=== PATIENT | female | born 1970 | race Caucasian/White ===

== ENCOUNTER 2022-11-17 16:10 | Emergency (ER) | payer OTHER ==
[2022-11-17 16:28] VITALS: BP 116/73; PULSE 95; RESP 19; TEMP 98.2; BMI 22.1
[2022-11-17] MEDS ORDERED: SODIUM CHLORIDE 0.9% 500 ML INFUS.BAG IV ONE (17:07)
[2022-11-17] MEDS ORDERED: MAG HYDROX/AL HYDROX/SIMETH 30 ML UNIT-DOSE CUP PO ONE (17:07)
[2022-11-17] MEDS ORDERED: ACETAMINOPHEN 1000 MG/100 ML BAG IVPB ONE (17:07)
[2022-11-17] MEDS ORDERED: FAMOTIDINE 20 MG/50 ML IVPB 20 MG/50 ML MG IVPB ONE (17:07)
[2022-11-17] MEDS ORDERED: ACETAMINOPHEN INJECTION 100 ML IVPB ONE (17:51)
[2022-11-17] MEDS ORDERED: MAG HYDROX/AL HYDROX/SIMETH 30 ML UNIT-DOSE CUP ONE (17:52)
[2022-11-17] MEDS ORDERED: FAMOTIDINE 20 MG/50 ML IVPB 0 MG/0 ML MG IVPB ONE (17:52)
[2022-11-17 17:57] LABS: BASO % 0.9 % (0-2.0); EOS % 2.3 % (0-4.5); HEMATOCRIT 40.4 % (32.4-45.2); HEMOGLOBIN 13.2 GM/dL (10.7-15.3); LYMPH % 39.7 % (8-40); MCH 30.1 pg (25.7-33.7); MCHC 32.7 g/dl (32.0-36.0); MEAN CELL VOLUME 91.8 fl (80-96); MEAN PLT VOLUME 8.8 fl (7.5-11.1); MONO % 10.2 % (3.8-10.2); NEUT % 46.9 % (42.8-82.8); PLATELET COUNT 274 10^3/uL (134-434); RDW 12.5 % (11.6-15.6); WHITE BLOOD COUNT 6.4 K/mm3 (4.0-10.0)
[2022-11-17 18:04] LABS: INR 1.07 (0.83-1.09); PROTHROMBIN TIME (PATIENT) 12.4 SEC (9.7-13.0)
[2022-11-17 18:07] LABS: ACTIVATED PTT 30.5 SECONDS (25.2-36.5)
[2022-11-17 18:13] LABS: POTASSIUM 4.2 mmol/L (3.5-5.1)
[2022-11-17 18:15] LABS: CALCIUM 9.4 mg/dL (8.5-10.1)
[2022-11-17 18:16] LABS: ALBUMIN 3.8 g/dl (3.4-5.0); BLOOD UREA NITROGEN 13.2 mg/dL (7-18); MAGNESIUM 2.4 mg/dL (1.8-2.4)
[2022-11-17 18:18] LABS: CREATININE 0.6 mg/dL (0.55-1.3)
[2022-11-17 18:20] LABS: BILIRUBIN,TOTAL 0.3 mg/dL (0.2-1); TOT PROT 7.4 g/dl (6.4-8.2)
== END 2022-11-17 20:32 | disposition home or self-care (01) ==
LOC: JER 16:10
PROC: 3E033GC Introduction of Other Therapeutic Substance into Peripheral Vein, Percutaneous Approach (ICD-10-PCS; principal; 2022-11-17)
PROC: 3E033NZ Introduction of Analgesics, Hypnotics, Sedatives into Peripheral Vein, Percutaneous Approach (ICD-10-PCS; 2022-11-17)
DX: R07.89 Other chest pain (principal); R10.30 Lower abdominal pain, unspecified; R50.9 Fever, unspecified
CPT/HCPCS: 36415; 71046-TC-FY; 76705-TC; 76775-TC; 80053; 83690; 83735; 84484; 85025; 85610; 85730; 93005; 93010; 99285-25

== ENCOUNTER 2023-05-16 01:54 | Emergency (ER) | payer OTHER ==
[2023-05-16 02:08] VITALS: BMI 22.9
[2023-05-16] MEDS ORDERED: IBUPROFEN 600 MG TABLET (FP) PO ONE ×2 (02:52→02:59)
[2023-05-16] MEDS ORDERED: DEXAMETHASONE 4 MG TABLET (FP) PO ONE (02:52)
[2023-05-16] MEDS ORDERED: valACYclovir HCL 500 MG TABLET (FP) PO ONE (02:52)
[2023-05-16] MEDS ORDERED: valACYclovir HCL 500 MG TABLET (FP) ONE (02:58)
[2023-05-16] MEDS ORDERED: DEXAMETHASONE 4 MG TABLET (FP) ONE ×2 (02:59→03:02)
[2023-05-16 03:14] VITALS: BP 107/58; PULSE 75; RESP 18; TEMP 97.8
== END 2023-05-16 03:35 | disposition home or self-care (01) ==
LOC: JER 01:54
DX: B02.9 Zoster without complications (principal); R21 Rash and other nonspecific skin eruption; L29.9 Pruritus, unspecified
CPT/HCPCS: 99283-25

== ENCOUNTER 2023-11-27 10:00 | Day surgery (SDC) | payer OTHER ==
[2023-11-20 15:43] VITALS: BMI 22.4
[2023-11-27 10:24] VITALS: TEMP 97.1
[2023-11-27 11:57] VITALS: RESP 18
[2023-11-27 13:10] VITALS: BP 115/74; PULSE 76
== END 2023-11-27 13:05 | disposition home or self-care (01) ==
LOC: FASU-ENDO 10:00
PROVIDERS: ATTEND Internal Medicine Gastroenterology
PROC: 0DB98ZX Excision of Duodenum, Via Natural or Artificial Opening Endoscopic, Diagnostic (ICD-10-PCS; 2023-11-27)
PROC: 0DB68ZX Excision of Stomach, Via Natural or Artificial Opening Endoscopic, Diagnostic (ICD-10-PCS; 2023-11-27)
PROC: 0DJD8ZZ Inspection of Lower Intestinal Tract, Via Natural or Artificial Opening Endoscopic (ICD-10-PCS; principal; 2023-11-27 11:19)
DX: Z12.11 Encounter for screening for malignant neoplasm of colon (principal); K29.50 Unspecified chronic gastritis without bleeding
CPT/HCPCS: 88305-TC; 88342-TC